=== PATIENT | female | born 2000 | race American Indian/Alaskan Native ===

== ENCOUNTER 2018-08-04 00:39 | Outpatient (CLI) | payer MEDICAID ==
[2018-08-04 01:02] VITALS: BP 107/56
== END 2018-08-04 02:35 | disposition home or self-care (01) ==
LOC: TRG 00:39
PROVIDERS: ATTEND Obstetrics & Gynecology
DX: O47.1 False labor at or after 37 completed weeks of gestation (principal); Z3A.39 39 weeks gestation of pregnancy
CPT/HCPCS: 59025

== ENCOUNTER 2018-08-07 19:37 | Outpatient (CLI) | payer MEDICAID ==
[2018-08-07 21:11] VITALS: BP 115/65
== END 2018-08-07 21:33 | disposition home or self-care (01) ==
LOC: TRG 19:37
PROVIDERS: ATTEND Obstetrics & Gynecology
DX: O47.1 False labor at or after 37 completed weeks of gestation (principal); Z3A.40 40 weeks gestation of pregnancy
CPT/HCPCS: 59025

== ENCOUNTER 2018-08-10 19:42 | Inpatient (IN) | payer MEDICAID ==
[2018-08-10] MEDS ORDERED: BRETHINE IVP PRN (21:55)
[2018-08-10] MEDS ORDERED: AMPICILLIN/NS 2 GM/100 ML 2 GM/100 ML BAG IV ONE (21:55)
[2018-08-10] MEDS ORDERED: SUBLIMAZE IV PRN (21:55)
[2018-08-10] MEDS ORDERED: BRETHINE SUB-Q PRN (21:55)
[2018-08-10] MEDS ORDERED: CERVIDIL VG ONE (21:55)
[2018-08-10] MEDS ORDERED: ZOFRAN IV PRN (21:55)
[2018-08-10] MEDS ORDERED: MINERAL OIL PO PRN (21:55)
[2018-08-10] MEDS ORDERED: XYLOCAINE 2% INFILTRATI ONE (21:55)
[2018-08-10] MEDS ORDERED: PITOCin/NS 20 UNIT/1000ML DRIP 20 UNITS/1,000 ML BAG IV SCH (22:00)
[2018-08-10 22:40] LABS: Hematocrit 24.4 % (30.3-42.9); Hemoglobin 8.5 gm/dl (10.1-14.3); Mean Corpuscular HGB Conc 35 % (30-34); Mean Corpuscular Volume 81 fl (79-97); Platelet Count 350 K/mm3 (140-440); Red Blood Count 3.03 M/mm3 (3.65-5.03); Red Cell Distribution Width 14.1 % (13.2-15.2)
[2018-08-10] MEDS: LACTATED RINGERS 1,000 ML IV SCH (22:50)
[2018-08-11] MEDS: STADOL IV PRN ×2 (01:50→05:58)
[2018-08-11] MEDS: AMPICILLIN/NS 1 GM/50 ML 1 GM/50 ML BAG IV SCH ×3 (03:58→12:45)
[2018-08-11] MEDS: LACTATED RINGERS 1,000 ML IV SCH ×3 (05:59→09:29)
[2018-08-11] MEDS ORDERED: PITOCin/NS 30 UNIT/500ML 30 UNITS/500 ML BAG IV SCH (08:00)
[2018-08-11] MEDS ORDERED: NARCAN 2 MG/2 ML IV PRN (09:09)
--- NOTE | 2018-08-11 09:47 | Anesthesia Consultation ---
Anesthesia Consult and Med Hx Date of service: 08/11/18 - Airway Anesthetic Teeth Evaluation: Good ROM Head & Neck: Adequate Mental/Hyoid Distance: Adequate Mallampati Class: Class II Intubation Access Assessment: Probably Good - Pre-Operative Health Status ASA Pre-Surgery Classification: ASA2 Proposed Anesthetic Plan: Epidural, Spinal - Pulmonary Hx Asthma: No - Cardiovascular System Hx Hypertension: No - Central Nervous System Hx Seizures: No Hx Psychiatric Problems: No - Endocrine Hx Renal Disease: No Hx Hypothyroidism: No Hx Hyperthyroidism: No - Hematic Hx Anemia: No Hx Sickle Cell Disease: No - Other Systems Hx Alcohol Use: No Hx Obesity: Yes
[2018-08-11] MEDS ORDERED: fentaNYL-BUPIV 2 MCG/ML-0.125% 200 MCG/100 ML BAG EPIDURAL SCH (11:00)
--- NOTE | 2018-08-11 17:31 | History and Physical Report ---
History of Present Illness Date of examination: 08/11/18 Date of admission: 08/10/18 19:42 Chief complaint: I'm overdue History of present illness: Pt is a 18 year old who presents to L&D for post dates induction of labor at term with EDC 08/06/18. Pt has had an uncomplicated course. She is GBs positive. Past History Past Medical History: no pertinent history Past Surgical History: no surgical history Family/Genetic History: none Social history: single - Obstetrical History Expected Date of Delivery: 08/06/18 Actual Gestation: 40 Week(s) 5 Day(s) : 2 Para: 0 Number of Living Children: 0 Medications and Allergies Allergies Allergy/AdvReac Type Severity Reaction Status Date / Time No Known Allergies Allergy Verified 08/04/18 00:55 Home Medications Medication Instructions Recorded Confirmed Last Taken Type Vit-Fe Fumar-FA [ 1 tab PO DAILY 08/07/18 08/07/18 08/07/18 History Vitamin] Active Meds: Active Medications Butorphanol Tartrate (Stadol) 2 mg IV Q2H PRN PRN Reason: Pain , Severe (7-10) Last Admin: 08/11/18 05:58 Dose: 2 mg Documented by: Ephedrine Sulfate (Ephedrine Sulfate) 10 mg IV Q2M PRN PRN Reason: Hypotension Ephedrine Sulfate (Ephedrine Sulfate) 10 mg IV Q2M PRN PRN Reason: Hypotension Fentanyl (Sublimaze) 100 mcg IV Q2H PRN PRN Reason: Labor Pain Last Admin: 08/11/18 03:53 Dose: 100 mcg Documented by: Oxytocin/Sodium Chloride (Pitocin/Ns 20 Unit/1000ml Drip) 20 units in 1,000 mls @ 125 mls/hr IV DIRECT EVELYNE Lactated Ringer's (Lactated Ringers) 1,000 mls @ 125 mls/hr IV DIRECT EVELYNE Last Admin: 08/11/18 09:29 Dose: 125 mls/hr Documented by: Ampicillin Sodium (Ampicillin/Ns 1 Gm/50 Ml) 1 gm in 50 mls @ 100 mls/hr IV Q4H EVELYNE; Protocol Last Admin: 08/11/18 12:45 Dose: 100 mls/hr Documented by: Oxytocin/Sodium Chloride (Pitocin/Ns 30 Unit/500ml) 30 units in 500 mls @ 4 mls/hr IV TITR EVELYNE; Protocol Last Titration: 08/11/18 10:00 Dose: 12 mls/hr, 12 mls/hr Documented by: Fentanyl/Bupivacaine/Sodium Chlor (Fentanyl-Bupiv 2 Mcg/Ml-0.125%) 200 mcg in 100 mls @ 12 mls/hr EPIDURAL TITR EVELYNE; Protocol Last Admin: 08/11/18 10:43 Dose: 12 mls/hr Documented by: Mineral Oil (Mineral Oil) 30 ml PO QHS PRN PRN Reason: Constipation Naloxone HCl (Narcan 2 Mg/2 Ml) 0.2 mg IV Q5M PRN PRN Reason: Respiratory sedation Ondansetron HCl (Zofran) 4 mg IV Q8H PRN PRN Reason: Nausea And Vomiting Terbutaline Sulfate (Brethine) 0.25 mg SUB-Q ONCE PRN PRN Reason: Hyperstimulation/Hypertonicity Terbutaline Sulfate (Brethine) 0.25 mg IVP ONCE PRN PRN Reason: Hyperstimulation/Hypertonicity Review of Systems All systems: negative Constitutional: weight gain Breasts: deferred Gastrointestinal: abdominal pain Genitourinary: deferred Rectal Exam: deferred - Vital Signs Vital signs: Vital Signs Pulse BP Pulse Ox 75 108/69 96 08/10/18 20:59 08/10/18 20:59 08/10/18 20:59 Temp Pulse Resp BP Pulse Ox 98.6 F 86 16 115/58 100 08/10/18 21:00 08/11/18 17:13 08/11/18 03:53 08/11/18 17:13 08/11/18 16:29 - Physical Exam Breasts: Positive: deferred Cardiovascular: Regular rate, Normal S1, Normal S2 Lungs: Positive: Clear to auscultation, Normal air movement Abdomen: Positive: normal appearance, soft, normal bowel sounds. Negative: distention, tenderness Genitourinary (Female): Positive: normal external genitalia, normal perenium Vulva: both: normal Vagina: Positive: normal moisture. Negative: discharge Cervix: Negative: lesion, discharge Uterus: Positive: normal size, normal contour Adnexa: both: normal Anus/Rectum: Positive: normal perianal skin, heme negative. Negative: rectal mass, hemorrhoids Extremities: Deep Tendon Reflex Grade: Normal +2 - Obstetrical FHR: auscultation normal Cervical Dilatation: 1 Cervical Effacement Percentage: 50 station: -3 Uterine Contraction Pattern: Absent Results Result Diagrams: 08/10/18 21:31 Abnormal lab results 08/10/18 Range/Units 21:31 WBC 4.4 L (4.5-11.0) K/mm3 RBC 3.03 L (3.65-5.03) M/mm3 Hgb 8.5 L (10.1-14.3) gm/dl Hct 24.4 L (30.3-42.9) % MCHC 35 H (30-34) % All other labs normal. Assessment and Plan IUP at 40.5 for post dates induction of labor. Admit and begin with cervidil. T reat for GBs status. Pt may have epidural when ready. Anticipate .
--- NOTE | 2018-08-11 17:49 | Procedure Note ---
OB Delivery Note - Delivery Date of Delivery: 08/11/18 Surgeon: CHON RAMAN Estimated blood loss: 300cc - Vaginal Delivery presentation: vertex Delivery position: OA Intrapartum events: none Delivery induction: oxytocin Delivery monitor: external FHT, external uterine Route of delivery: Delivery placenta: spontaneous Delivery cord: 3 umbilical vessels Delivery laceration: 2nd degree Delivery repair: vicryl Anesthesia: epidural Delivery comments: Viable male delivered over intact perineum with Apgars 9 and 9 and weight 7 lbs. 5 oz.. No nuchal cord noted. Infant was placed on maternal abdomen and cord was clamped and cut after it was completely done with it's pulsations. He had spontaneous and vigorous cry. Placenta was delivered spontaneously and intact with a three-vessel cord. A second-degree laceration was repaired with 2-0 Vicryl for excellent hemostasis. The patient tolerated the procedure well. - Infant A at 1 minute: 8 at 5 minutes: 9 Infant Gender: Male (7 pounds 5 ounces)
[2018-08-11] MEDS ORDERED: DULCOLAX PR PRN (19:36)
[2018-08-11] MEDS ORDERED: PHENERGAN PR PRN (19:36)
[2018-08-11] MEDS ORDERED: TYLENOL PO PRN (19:36)
[2018-08-11] MEDS ORDERED: LANSINOH TP PRN (19:36)
[2018-08-11] MEDS ORDERED: BENADRYL PO PRN (19:36)
[2018-08-11] MEDS ORDERED: SODIUM CHLORIDE FLUSH SYRINGE 10 ML IV NR (19:36)
[2018-08-11] MEDS ORDERED: PHENERGAN PO PRN (19:36)
[2018-08-11] MEDS ORDERED: MILK OF MAGNESIA PO PRN (19:36)
[2018-08-11] MEDS ORDERED: ZOFRAN IV PRN (19:36)
[2018-08-11] MEDS: IBUPROFEN PO SCH (21:47)
[2018-08-11] MEDS: COLACE PO SCH (21:48)
[2018-08-11] MEDS: TUCKS PAD TP PRN (21:49)
[2018-08-12] MEDS: IBUPROFEN PO SCH ×4 (03:59→22:35)
[2018-08-12 06:36] LABS: Hemoglobin 6.6 gm/dl (10.1-14.3)
[2018-08-12 06:58] LABS: Hematocrit 19.9 % (30.3-42.9)
[2018-08-12] MEDS: COLACE PO SCH ×2 (10:05→22:37)
[2018-08-12] MEDS: PRENATAL VITAMIN PO SCH (10:05)
[2018-08-12] MEDS: NORCO 5/325 PO PRN ×2 (11:49→20:46)
[2018-08-12] MEDS: FEOSOL PO SCH ×2 (13:30→20:44)
[2018-08-12] MEDS: TUCKS PAD TP PRN (16:24)
[2018-08-13] MEDS: IBUPROFEN PO SCH ×2 (05:00→11:33)
[2018-08-13] MEDS: NORCO 5/325 PO PRN ×2 (05:00→11:36)
[2018-08-13] MEDS: COLACE PO SCH ×2 (10:27→10:28)
[2018-08-13] MEDS: FEOSOL PO SCH (10:28)
--- NOTE | 2018-08-13 11:09 | Progress Note ---
Assessment and Plan PPD 2 s/p . Doing well. Plan for discharge on today. Subjective - Subjective Date of service: 08/13/18 Interval history: Pt is a 18 year old who presents to L&D for post dates induction of labor at term with EDC 08/06/18. Pt has had an uncomplicated course. She is GBs positive. Patient reports: appetite normal, voiding normally, pain well controlled, ambulating normally [place]: doing well Objective - Vital Signs Latest vital signs: Vital Signs Temp Pulse Resp BP BP Pulse Ox 08/13/18 07:38 97.4 F L 82 18 102/54 08/13/18 05:00 18 08/13/18 00:00 98.6 F 78 16 102/68 08/12/18 22:57 98.0 F 80 20 107/54 99 08/12/18 22:35 20 08/12/18 16:11 98.1 F 80 20 109/60 97 08/12/18 12:10 98.0 F 70 20 108/56 99 Intake and Output 08/12/18 08/13/18 08/13/18 22:59 06:59 14:59 Intake Total 240 300 480 Balance 240 300 480 Intake: Oral 240 480 Intake, Free Water 300 Other: Total, Intake Amount 240 480 # Voids Void 1 - Exam Breasts: Present: deferred Cardiovascular: Present: Regular rate, Normal S1, Normal S2 Lungs: Present: Clear to auscultation, Normal air movement Abdomen: Present: normal appearance, soft Vulva: both: normal Uterus: Present: normal, firm Extremities: Present: normal Incision: Present: normal, dry, intact
--- NOTE | 2018-08-13 11:11 | Discharge Summary ---
Providers - Providers Date of Admission: 08/10/18 19:42 Date of discharge: 08/13/18 Attending physician: CHON RAMAN Primary care physician: CHON RAMAN Hospitalization Reason for admission: induction of labor Delivery: Episiotomy: none Laceration: 2nd degree complications: none Discharge diagnosis: IUP at term delivered baby: male Hospital course: Unremarkable Condition at discharge: Good Disposition: DC-01 TO HOME OR SELFCARE Plan - Discharge Medications Prescriptions: Ferrous Sulfate [Feosol 325 MG tab] 325 mg PO BID #60 tablet Ibuprofen [Motrin] 800 mg PO Q8HR PRN #40 tablet PRN Reason: Pain, Moderate (4-6) HYDROcodone/APAP 5-325 [[place] 5/325] 1 each PO Q4HR PRN #25 tablet PRN Reason: Pain - Provider Discharge Summary Activity: routine, no sex for 6 weeks, no heavy lifting 4 weeks, no strenuous exercise Diet: routine Instructions: routine Additional instructions: [] Smoking cessation referral if applicable(refer to patient education folder for contact #) [] Refer to [facility] Booklet Call your doctor immediately for: * Fever > 100.5 * Heavy vaginal bleeding ( >1 pad per hour) * Severe persistent headache * Shortness of breath * Reddened, hot, painful area to leg or breast * Drainage or odor from incision. * Keep incision clean and dry at all times and follow doctor's instructions regarding bathing/showering - Follow up plan Follow up: CHON RAMAN MD [Primary Care Provider] - 6 Weeks
[2018-08-13] MEDS: PRENATAL VITAMIN PO SCH (11:32)
[2018-08-13 16:30] VITALS: BP 111/62
== END 2018-08-13 18:00 | disposition home or self-care (01) | DRG 775 ==
LOC: APU 19:42 → LD 19:50 → OB 08-11 19:41
PROVIDERS: ADMIT Obstetrics & Gynecology; ATTEND Obstetrics & Gynecology
PROC: 3E033VJ Introduction of Other Hormone into Peripheral Vein, Percutaneous Approach (ICD-10-PCS; 2018-08-10)
PROC: 10E0XZZ Delivery of Products of Conception, External Approach (ICD-10-PCS; principal; 2018-08-11)
PROC: 0KQM0ZZ Repair Perineum Muscle, Open Approach (ICD-10-PCS; 2018-08-11)
PROC: 3E0R3BZ Introduction of Anesthetic Agent into Spinal Canal, Percutaneous Approach (ICD-10-PCS; 2018-08-11)
PROC: 00HU33Z Insertion of Infusion Device into Spinal Canal, Percutaneous Approach (ICD-10-PCS; 2018-08-11)
DX: O48.0 Post-term pregnancy (principal); O99.214 Obesity complicating childbirth; E66.9 Obesity, unspecified; O70.1 Second degree perineal laceration during delivery; Z3A.40 40 weeks gestation of pregnancy; Z37.0 Single live birth
CPT/HCPCS: 36415; 59025; 85014; 85018; 85027; 86592; 86850; 86900; 86901; G0378; A6250; J0290; J0595; J2590; J3010; J7120